=== PATIENT | female | born 1980 | race Caucasian/White ===

== ENCOUNTER 2017-04-17 09:20 | Inpatient (IN) | payer MEDICAID ==
--- NOTE | 2017-04-17 09:52 | PDGENHP ---
History and Physical - Chief Complaint labor and leaking fluid since 0600 - History of Present Illness Patient is a 36 year old at 38 6/7 weeks gestation who presents for leaking of fluid since 0600. +Contractions, +FM no vaginal bleeding History Information - Allergies/Home Medication List Allergies/Adverse Reactions: No Known Allergies Allergy (Unverified 04/17/17 09:44) I have personally reviewed and updated: medical history - Past Medical History no pertinent PMH Review of Systems Review of Systems: Physical Exam Physical Exam: Constitutional: no apparent distress, appears nourished Cardiovascular: regular rate and rhythym Respiratory: no respiratory distress Gastrointestinal: normoactive bowel sounds, soft, non-tender abdomen, no palpable masses Genitourinary: other (SVE 4/80/0 SROM clear fluid and vertex by ultrasound) Skin: warm, normal color Neurologic: AAOx3, sensation intact bilaterally Psychiatric: interacting appropriately, not anxious Assessment & Plan Assessment: Assessment and Plan IUP at 38 6/7 weeks vertex by ultrasound SROM clear Fluid. [facility] will get labs Active labor Admit to labor and Delivery CBC and type and screen Expectant management
[2017-04-17] MEDS ORDERED: LR 1,000 ML IV SCH (10:00)
[2017-04-17] MEDS ORDERED: MISOPROSTOL 200 MCG TAB ONE (11:21)
[2017-04-17] MEDS ORDERED: OXYTOCIN 10 UNIT/ML VIAL ONE (11:21)
[2017-04-17] MEDS ORDERED: AMMONIA AROMATIC 1 EACH AMP IH ONE (11:21)
[2017-04-17] MEDS: fentaNYL 100 MCG/2 ML INJ IVP PRN ×3 (13:52→16:27)
[2017-04-17] MEDS ORDERED: MISOPROSTOL 200 MCG TAB PR PRN (14:40)
[2017-04-17] MEDS ORDERED: LIDOCAINE 1% 300 MG/30 ML SDV SC PRN (14:40)
[2017-04-17] MEDS ORDERED: OLIVE OIL 118 ML BTL MISC PRN (14:40)
[2017-04-17] MEDS ORDERED: LR 1,000 ML IV PRN (14:40)
[2017-04-17] MEDS ORDERED: EPSOM SALT 454 GM TP PRN (14:40)
[2017-04-17] MEDS ORDERED: OXYTOCIN 20 UNIT in LR 1,000 ML IV PRN (14:40)
[2017-04-17] MEDS ORDERED: TERBUTALINE SULFATE 1 MG/ML VIAL IV PRN (14:40)
[2017-04-17] MEDS ORDERED: AMPICILLIN SODIUM 1 GM in NS 50 ML IV SCH ×2 (16:15→17:12)
[2017-04-17] MEDS ORDERED: AMPICILLIN SODIUM 2 GM in STERILE WATER INJ 25 ML IV ONE (16:30)
[2017-04-17] MEDS ORDERED: ACETAMINOPHEN 325 MG TAB PO PRN (17:08)
[2017-04-17] MEDS ORDERED: HYDROCODONE/APAP 5/325 TAB PO PRN (17:08)
[2017-04-17] MEDS ORDERED: DOCUSATE SODIUM 100 MG CAP PO PRN (17:08)
--- NOTE | 2017-04-17 17:14 | OBDEL ---
Info Type: Vaginal Presentation at Delivery: Vertex L&D Analgesia/Anesthesia Type: IV Narcotics GBS+: Yes Antibiotic Used for + GBS: Ampicillin Intrapartum Medications: Generic Name Dose Route Start Last Admin Trade Name Freq PRN Reason Stop Dose Admin Fentanyl 50 - 100 mcg 04/17/17 09:46 04/17/17 16:27 Sublimaze IVP 04/27/17 09:45 75 mcg Q4HRS PRN Administration Pain, Severe Unable to Take PO Discontinued Medications Generic Name Dose Route Start Last Admin Trade Name Freq PRN Reason Stop Dose Admin Ampicillin Sodium 2 gm/ 25 mls @ 100 mls/hr 04/17/17 16:30 04/17/17 16:36 Sterile Water IV 04/17/17 16:44 25 mls ONCE ONE Administration - Hospital Course Intrapartum: 04/17/17 17:11 Patient arrived to labor and delivery SRom and in labor at 0630 and progressed on her own to complete at 1648. over intact perineum at 1652 and 1654. Right labial laceration. Placenta spontaneously delivered intact. EBL 250 mL Indications for Delivery: Spontaneous Labor, SROM Vaginal Delivery - Delivery Provider Proctoring Provider: [place] - Labor and Delivery Onset of Contractions Date: 04/17/17 Onset of Contractions Time: 06:00 Onset of Contractions Type: Spontaneous Rupture of Membranes Date: 04/17/17 Rupture of Membranes Time: 06:00 Rupture of Membranes Type: Spontaneous Amniotic Fluid Color: Clear Dilation Complete Date: 04/17/17 Dilation Complete Time: 16:48 Placenta Delivery Date: 04/17/17 Placenta Delivery Time: 16:54 Total Hours of Labor: 10 Laceration: Other (Specify) (right labia superficial) Vaginal Sponge Count Correct: Yes Vaginal Needle Count Correct: Yes Vaginal Sweep Performed: Yes Delivery Events: None Delivery Comment: Patient arrived to labor and delivery SRom and in labor at 0630 and progressed on her own to complete at 1648. over intact perineum at 1652 and 1654. Right labial laceration. Placenta spontaneously delivered intact. EBL 250 m [place] Data GAGANDEEP: 04/25/17 Gestational Age: 38 week(s) and 6 day(s) Raymond Delivery Date: 04/17/17 Delivery Time: 16:52 Sex of : Male Score (1 Min): 8 Score (5 Min): 9 ICD10 Worksheet Patient Problems: Problems Problem Status Onset GBS (group B Streptococcus carrier), +RV culture, currently Acute Labor abnormal Acute - ICD10 Problem Qualifiers (1) Labor abnormal (2) GBS (group B Streptococcus carrier), +RV culture, currently
[2017-04-17] MEDS: IBUPROFEN 600 MG TAB PO PRN ×2 (17:23→23:35)
[2017-04-17] MEDS ORDERED: AMPICILLIN SODIUM 1 GM in STERILE WATER INJ 15 ML IV SCH (20:30)
[2017-04-18] MEDS: IBUPROFEN 600 MG TAB PO PRN ×3 (05:43→20:28)
--- NOTE | 2017-04-18 10:08 | OBPP ---
Progress Note Assessment/Plan: Assessment: [id number] s/p GBS+ not treated PPD#1 anemia Plan: routine PP care start PO iron supplementation cont social service consult / DV plan to d/c home tomorrow 04/18/17 10:08 04/18/17 12:45 Subjective/ Course: 04/18/17 10:10 Pt doing well, she denies any pain or heavy bleeding. She is ambulating without difficulty. She is without difficulty. 04/18/17 12:43 Objective: 04/18/17 05:50 Patient ABO/Rh O POSITIVE 04/17/17 09:55 Temp Pulse Resp BP Pulse Ox 36.6 C 92 16 106/63 95 04/18/17 09:52 04/18/17 09:52 04/18/17 09:52 04/18/17 09:52 04/18/17 04:00 Uterine Position/Fundal Height: Umbilicus -1, Midline Uterine Tone: Firm
--- NOTE | 2017-04-18 16:35 | ASMTCMCOM ---
CM Note CM Note Notes: Pt. is a 36-year-old mostly Danish-speaking woman who delivered a term baby boy on 04/17/17. Ruben, bedside RN called SWer for a consult due to MD's concern due to Pt reportedly having a restraining order against the father of the baby. SWer contacted concierge receptionist, Gilbert, who assisted with interview. Upon SWer's questioning, Pt. stated that she does have a restraining order against the baby's father and since she got the restraining order she has not heard from him. Pt. states she moved from the [facility] to her own apartment - address listed on facesheet is accurate. Pt. states she feels safe at this time. Pt's two other children, ages 16 and 11, live with her in the apartment. Provided Pt. with information about the [facility] (CIP) in Danish and provided application should she want to fill it out with the baby's pediatric staff at [facility] (Pt. did not want to complete it with SWer today). [facility] appt. made for baby for 04/22/17 at 10:00am, 9:45 check in. Baby to see Kaity Vázquez in the green pod. Gave information to Pt. Upon SWer's questioning, Pt. stated she did not need assistance with food or clothes or other items at this time. Pt. appropriate and very engaging in our interview. Plan for d/c to home with baby tomorrow per RN. Date Signed: 04/18/2017 04:34 PM Electronically Signed By:Georgia Austin LCSW
[2017-04-19] MEDS: IBUPROFEN 600 MG TAB PO PRN ×2 (02:30→10:24)
--- NOTE | 2017-04-19 08:16 | OBPP ---
Progress Note Assessment/Plan: Assessment: 1) 36 y/o s/p PPD #2 - pt is stable 2) Anemia - pt is asymptomatic Plan: Plan for d/c home today, will board since baby has elev bili Instructions reviewed with pt No RX given Cont PNV, iron, and Motrin Pelvic rest Follow up with [facility] 1-2 weeks for pp visit Pt desires Mirena IUD 04/19/17 08:27 Subjective/ Course: 04/18/17 10:10 Pt doing well, she denies any pain or heavy bleeding. She is ambulating without difficulty. She is without difficulty. 04/18/17 12:43 04/19/17 08:15 Pt seen and examined. mechanical planner used. Doing well with no complaints. Mild cramping, once a day. Mod lochia. She is OOB, mary regulat diet, voiding and BM x 1. She is both and using donor milk. 04/19/17 08:28 Objective: 04/18/17 05:50 Patient ABO/Rh O POSITIVE 04/17/17 09:55 Temp Pulse Resp BP Pulse Ox 36.2 C 78 16 105/64 96 04/18/17 20:00 04/18/17 20:00 04/18/17 20:00 04/18/17 20:00 04/18/17 20:00 Uterine Position/Fundal Height: Umbilicus -2 Uterine Tone: Firm Physical Exam - Physical Exam Respiratory: lungs clear, normal breath sounds Cardiac/Chest: regular rate, rhythm Abdomen: normal bowel sounds, non-tender, soft, flatus (+) Extremities: non-tender, normal inspection Skin: normal color, warm/dry Neuro/Psych: alert, normal mood/affect, oriented x 3
--- NOTE | 2017-04-19 08:27 | OBGCSDC ---
General Delivery Information - General Info : 4 Para: 3 Abortions: 1 Type: Vaginal L&D Analgesia/Anesthesia Type: IV Narcotics Admission Date: 04/17/17 Labs: Patient ABO/Rh O POSITIVE 04/17/17 09:55 Hct 30.6 % (38.0-47.0) L 04/18/17 05:50 - Hospital Course Intrapartum: 04/17/17 17:11 Patient arrived to labor and delivery SRom and in labor at 0630 and progressed on her own to complete at 1648. over intact perineum at 1652 and 1654. Right labial laceration. Placenta spontaneously delivered intact. EBL 250 mL : 04/18/17 10:10 Pt doing well, she denies any pain or heavy bleeding. She is ambulating without difficulty. She is without difficulty. 04/18/17 12:43 04/19/17 08:15 Pt seen and examined. Vaginal - Diagnosis Labor: Spontaneous Rupture of Membranes Type: Spontaneous Amniotic Fluid Color: Clear Laceration: Other (Specify) (right labia superficial) Delivery Events: None Data GAGANDEEP: 04/25/17 Gestational Age: 39 week(s) and 1 day(s) Raymond Delivery Date: 04/17/17 Delivery Time: 16:52 Sex of : Male Weight (gm): 3656 g Score (1 Min): 8 Score (5 Min): 9 Discharge Information - Discharge Information Condition: Good Instruction/Follow Up: Two Weeks ([facility])
[2017-04-19 08:44] VITALS: BP 117/68; PULSE 67; RESP 14; TEMP 98.4; O2SAT 97
== END 2017-04-19 15:00 | disposition home or self-care (01) | DRG 775 ==
LOC: FLD 09:20 → EEVIPCON 09:20 → FOB 19:42
PROVIDERS: ADMIT Obstetrics & Gynecology; ATTEND Obstetrics & Gynecology
PROC: 10E0XZZ Delivery of Products of Conception, External Approach (ICD-10-PCS; principal; 2017-04-17)
DX: O99.820 Streptococcus B carrier state complicating pregnancy (principal); Z37.0 Single live birth; Z3A.38 38 weeks gestation of pregnancy; O99.02 Anemia complicating childbirth; D64.9 Anemia, unspecified; O70.0 First degree perineal laceration during delivery
CPT/HCPCS: J0290; J2590; J3010